=== PATIENT | male | born 1990 | race Hispanic/Latino ===

== ENCOUNTER 2023-11-28 15:01 | Emergency (ER) | payer OTHER ==
[~2023-11-28] VITALS: Ht 160 cm; Wt 75.0 kg
[2023-11-28] MEDS ORDERED: KEFLEX500 MG PO ×2 (16:28→16:35)
[2023-11-28 16:31] VITALS: BP 128/70
== END 2023-11-28 16:38 | disposition home or self-care (01) | DRG 605 ==
LOC: ED 15:01
PROC: 0HQGXZZ Repair Left Hand Skin, External Approach (ICD-10-PCS; principal; 2023-11-28)
DX: S61.012A Laceration without foreign body of left thumb without damage to nail, initial encounter (principal); W27.1XXA Contact with garden tool, initial encounter; Y92.009 Unspecified place in unspecified non-institutional (private) residence as the place of occurrence of the external cause

== ENCOUNTER 2023-12-07 18:10 | Emergency (ER) | payer SELFPAY ==
[~2023-12-07] VITALS: Ht 160 cm; Wt 81.6 kg
[~2023-12-07 18:10] MED LIST: KEFLEX500 MG PO
[2023-12-07 19:50] VITALS: BP 130/82
[2023-12-07 20:06] VITALS: BP 130/82
== END 2023-12-07 20:07 | disposition home or self-care (01) | DRG 950 ==
LOC: ED 18:10
DX: S61.012D Laceration without foreign body of left thumb without damage to nail, subsequent encounter (principal); X58.XXXD Exposure to other specified factors, subsequent encounter